=== PATIENT | female | born 1950 ===

== ENCOUNTER 2017-11-17 09:34 | Outpatient (CLI) | payer OTHER ==
[~2017-11-17] VITALS: Ht 152.4 cm; Wt 74.8 kg
== END 2017-11-17 09:50 | disposition home or self-care (01) ==
LOC: OFIC 805 09:34
DX: H93.13 Tinnitus, bilateral (principal); H90.3 Sensorineural hearing loss, bilateral

== ENCOUNTER 2018-06-08 10:59 | Outpatient (CLI) | payer OTHER ==
[~2018-06-08] VITALS: Ht 152.4 cm; Wt 74.8 kg
== END 2018-06-08 11:15 | disposition home or self-care (01) ==
LOC: OFIC 805 10:59
DX: H93.13 Tinnitus, bilateral (principal); H90.3 Sensorineural hearing loss, bilateral